=== PATIENT | female | born 1980 | race Caucasian/White ===

== ENCOUNTER 2021-08-21 18:25 | Emergency (ER) | payer MEDICAID ==
[2021-08-21] MEDS ORDERED: Ketorolac 30 MG/ML SDV IM ONE (19:22)
[2021-08-21] MEDS ORDERED: Ketorolac 30 MG/ML SDV ONE (19:27)
[2021-08-21] MEDS ORDERED: Ondansetron 4 MG Tab.DIS PO ONE (19:36)
[2021-08-21] MEDS ORDERED: Ondansetron 4 MG Tab.DIS ONE (19:38)
[2021-08-22] MEDS ORDERED: Prochlorperazine 10 MG in Sodium Chloride 0.9% 50 ML IV ONE (07:06)
[2021-08-22] MEDS ORDERED: Prochlorperazine 10 MG/2 ML SDV IVPUSH ONE (07:15)
[2021-08-22] MEDS ORDERED: LORazepam 2 MG/ML SDV ONE (07:22)
[2021-08-22] MEDS ORDERED: Pantoprazole 40 MG Vial ONE (07:31)
== END 2021-08-21 20:15 | disposition home or self-care (01) ==
LOC: LB.ED 18:25
DX: R18.8 Other ascites (principal); R06.02 Shortness of breath
CPT/HCPCS: 36415; 49083; 80053; 85025; 87070; 87205; 96372; 99284; 99284-25; A9270-GY; J1885

== ENCOUNTER 2021-08-22 06:32 | Emergency (ER) | payer MEDICAID ==
[2021-08-22] MEDS ORDERED: Ondansetron 4 MG/2 ML SDV IVPUSH ONE (07:07)
[2021-08-22] MEDS ORDERED: Prochlorperazine 10 MG in Sodium Chloride 0.9% 50 ML IV ONE (07:10)
[2021-08-22] MEDS ORDERED: Pantoprazole 40 MG Vial IVPUSH ONE (07:21)
[2021-08-22] MEDS ORDERED: Sodium Chloride 0.9% 1,000 ML IV SCH (07:30)
[2021-08-22] MEDS ORDERED: Prochlorperazine 10 MG/2 ML SDV IVPUSH ONE (07:30)
--- NOTE | 2021-08-22 07:54 | EDM.PDOC ---
ED HPI GENERAL MEDICAL PROBLEM - General Chief Complaint: Gastrointestinal Problem Stated Complaint: Vomiting blood Time Seen by Provider: 08/22/21 06:37 Source of Information: Reports: Patient History Limitations: Reports: No Limitations - History of Present Illness INITIAL COMMENTS - FREE TEXT/NARRATIVE: 40-year-old female presents to the ED complaining of hemoptysis. Patient was seen in the ER last night for abdominal pain and shortness of breath secondary to ascites buildup from her chronic liver failure. Patient had a therapeutic paracentesis in the ED removing 2000 cc. Patient was discharged in stable condition at that time. Patient has a medical history of heart failure and esophageal varices hepatitis C. Last esophageal varices repair was done during approximately July 25 of this year. This morning unknown exact time patient awoke throwing up blood she did this in her words "all morning" unknown number of episodes of emesis. Blood is described as bright red and large volume. Patient is screaming that she is going to with the feeling of impending doom. Patient denies shortness of breath chest pain loss of consciousness or trauma since last night - Related Data Allergies Allergy/AdvReac Type Severity Reaction Status Date / Time No Known Allergies Allergy Verified 08/22/21 07:01 Home Meds: Home Meds Furosemide [Lasix] 20 mg PO DAILY 08/21/21 [History] Spironolactone [Aldactone] 25 mg PO DAILY 08/21/21 [History] Past Medical History Gastrointestinal History: Reports: Cirrhosis, GI Bleed (Esophageal varices), Hemorrhoids, Other (See Below) (Liver failure) - History Comment History Comment: EtOH abuse recreational drug abuse ED ROS GENERAL - Review of Systems Review Of Systems: Comprehensive ROS is negative, except as noted in HPI. Constitutional: Reports: Weakness, Fatigue, Weight Loss HEENT: Reports: No Symptoms Respiratory: Reports: No Symptoms Cardiovascular: Reports: No Symptoms Endocrine: Reports: Fatigue GI/Abdominal: Reports: Abdominal Pain, Bloody Stool, Distension, Hematochezia, Vomiting : Reports: No Symptoms Musculoskeletal: Reports: No Symptoms Skin: Reports: Pallor, Dryness Neurological: Reports: No Symptoms Psychiatric: Reports: Anxiety Hematologic/Lymphatic: Reports: Anemia, Easy Bleeding, Easy Bruising ED EXAM, GI/ABD - Physical Exam Exam: See Below Text/Narrative:: Airwaybloody emesis patient able to clear on her own can be laid down feels like she is drowning. Breathingslightly tachypneic 16-24 respirations per minute Circulationthready regular tachycardic Patient in obvious distress. No obvious trauma. Speaking in full sentences. Alert and oriented x3, GCS 456. Exam Limited By: No Limitations General Appearance: Alert, WD/WN, No Apparent Distress, Anxious, Severe Distress, Thin Eyes: Bilateral: EOMI, Pale Conjunctiva Ears: Normal External Exam, Hearing Grossly Normal Throat/Mouth: Normal Lips, Normal Voice, No Airway Compromise, Other (Blood in hypopharynx and mouth secondary to hemoptysis) Head: Atraumatic, Normocephalic Respiratory/Chest: Lungs Clear, Normal Breath Sounds, No Accessory Muscle Use Cardiovascular: Tachycardia, Other (Hypotensive). No: Extra Beats Extremities: No Pedal Edema Neurological: Alert, Oriented, Normal Cognition Psychiatric: Anxious Skin Exam: Dry, Cool, Pallor ED ABDOMINAL/GI PROCEDURES - Additional/Other Procedure(s) Procedure(s) (Free Text): Transfused 2 units blood O- cross and screen patient is A+ Course - Vital Signs Last Recorded V/S: Last Vital Signs Temp 97.6 F 08/22/21 07:00 Pulse 100 08/22/21 07:00 Resp 14 08/22/21 07:00 BP 92/54 L 08/22/21 07:00 Pulse Ox 100 08/22/21 07:00 - Orders/Labs/Meds Orders: Active Orders 24 hr Category Date Time Status CBC WITH AUTO DIFF [HEME] Stat Lab 08/22/21 07:23 Ordered CORONAVIRUS COVID-19 KODY [MOLEC] Routine Lab 08/22/21 07:15 Received RED BLOOD CELLS LP [BBK] Routine Lab 08/22/21 07:05 Received TYPE AND SCREEN [BBK] Routine Lab 08/22/21 07:05 Received Sodium Chloride 0.9% [Normal Saline] 1,000 ml Med 08/22/21 07:30 Active IV ASDIRECTED Transfuse PRBC [Transfuse Red Blood Cells] [COMM] Stat Oth 08/22/21 07:23 Ordered Medication Orders Sodium Chloride (Normal Saline) 1,000 mls @ 50 mls/hr IV ASDIRECTED LILI Meds: Medications Generic Name Dose Route Start Last Admin Trade Name Freq PRN Reason Stop Dose Admin Sodium Chloride 1,000 mls @ 50 mls/hr 08/22/21 07:30 Normal Saline IV ASDIRECTED LILI Discontinued Medications Generic Name Dose Route Start Last Admin Trade Name John PRN Reason Stop Dose Admin Ondansetron HCl 4 mg 08/22/21 07:07 Ondansetron 4 Mg/2 Ml Sdv IVPUSH 08/22/21 07:08 ONETIME ONE Pantoprazole Sodium 80 mg 08/22/21 07:21 Pantoprazole 40 Mg Vial IVPUSH 08/22/21 07:22 .BOLUS ONE Prochlorperazine Edisylate 10 mg 08/22/21 07:30 Prochlorperazine 10 Mg/2 Ml Sdv IVPUSH 08/22/21 07:31 ONETIME ONE Departure - Departure Time of Disposition: 08:45 Disposition: DC/Tfer to Acute Hospital 02 Condition: Poor Clinical Impression: Esophageal varices Qualifiers: Esophageal varices type: secondary Esophageal varices bleeding: with bleeding Qualified Code(s): I85.11 - Secondary esophageal varices with bleeding - Discharge Information *PRESCRIPTION DRUG MONITORING PROGRAM REVIEWED*: No *COPY OF PRESCRIPTION DRUG MONITORING REPORT IN PATIENT JARETT: No Referrals: PCP,None [Primary Care Provider] - Sepsis Event Note (ED) - Evaluation Sepsis Screening Result: No Definite Risk - Focused Exam Vital Signs: Vital Signs Temp Pulse Resp BP Pulse Ox 08/22/21 07:00 97.6 F 100 14 92/54 L 100 - My Orders Last 24 Hours: My Active Orders 08/22/21 07:05 RED BLOOD CELLS LP [BBK] Routine TYPE AND SCREEN [BBK] Routine 08/22/21 07:15 CORONAVIRUS COVID-19 KODY [MOLEC] Routine 08/22/21 07:23 CBC WITH AUTO DIFF [HEME] Stat Transfuse PRBC [Transfuse Red Blood Cells] [COMM] Stat 08/22/21 07:30 Sodium Chloride 0.9% [Normal Saline] 1,000 ml IV ASDIRECTED - Assessment/Plan Last 24 Hours: My Active Orders 08/22/21 07:05 RED BLOOD CELLS LP [BBK] Routine TYPE AND SCREEN [BBK] Routine 08/22/21 07:15 CORONAVIRUS COVID-19 KODY [MOLEC] Routine 08/22/21 07:23 CBC WITH AUTO DIFF [HEME] Stat Transfuse PRBC [Transfuse Red Blood Cells] [COMM] Stat 08/22/21 07:30 Sodium Chloride 0.9% [Normal Saline] 1,000 ml IV ASDIRECTED Assessment:: 1. Hemoptysis secondary to esophageal varices 2. Anemia 3. Chronic liver failure Plan: Airway breathing circulation, history, exam, IV, EKG, I/O, normal saline bolus, blood transfusion O-, Protonix 80 mg, consultation with Brianna Salcido, consultation and acceptance by ER physician at [facility] by Dr. Poon. [employer] [facility] contacted 1 hour ETA, fixed wing, delayed due to weather, octreotide 50 mcg. Transferred to flight crew Per up-to-date TXA it is of no benefit in esophageal varices bleeding.
[2021-08-22] MEDS ORDERED: Octreotide 100 MCG/ML SDV IV ONE (08:40)
== END 2021-08-22 09:50 ==
LOC: LB.ED 06:32
DX: I85.11 Secondary esophageal varices with bleeding (principal); Z20.822 Contact with and (suspected) exposure to COVID-19
CPT/HCPCS: 36415; 36430; 85025; 86850; 86900; 86901; 86920; 86922; 87635; 93005; 96374; 96375; 99285; C9113; J0780; J2354; J2405; J7030; P9016; A0425; A0429; U0002

== ENCOUNTER 2021-08-28 10:06 | Emergency (ER) | payer MEDICAID ==
[2021-08-28] MEDS ORDERED: Sodium Chloride 0.9% 10 ML Syringe FLUSH PRN (10:37)
[2021-08-28] MEDS ORDERED: HYDROmorphone 2 MG/ML SDV ONE ×2 (11:30→15:25)
--- NOTE | 2021-08-28 11:43 | EDM.PDOC ---
ED HPI GENERAL MEDICAL PROBLEM - General Chief Complaint: Abdominal Pain Stated Complaint: PAIN Time Seen by Provider: 08/28/21 10:06 Source of Information: Reports: Patient, Family, Old Records, RN Notes Reviewed History Limitations: Reports: No Limitations - History of Present Illness INITIAL COMMENTS - FREE TEXT/NARRATIVE: This patient presents to the emergency department for evaluation of abdominal pain. She has a very long and complex history that includes liver failure, alcoholic cirrhosis, a GI bleed, esophageal varices, anemia, metabolic encephalopathy, thrombocytopenia, recent pneumonia, alcoholic dependence, and methamphetamine abuse. Additionally she is quite malnourished. She has most recently been hospitalized in [place] and was discharged in the care of her family who wanted to take care of her at home; however, they are not able to meet her care needs. During her last hospitalization she was getting paracentesis and will need to have that done soon. She was tapped last on 08/26 and 4400 mils were removed. According to family members she has an appointment at [facility] [address] in [place] tomorrow to have paracentesis done there. Today she is complaining of significant abdominal pain with more distention. She states it is difficult for her to move or breathe and cannot tolerate the pain any longer. She has had no vomiting or diarrhea. She has got some nausea today. According to family members when she is out of the hospital she is nonadherent with diet and fluid restriction and it is unknown whether she has been using alcohol or other drugs. She states she has not had any drug or alcohol use for several months; however, her physical presentation and condition does not support that allegation. - Related Data Allergies Allergy/AdvReac Type Severity Reaction Status Date / Time No Known Allergies Allergy Verified 08/22/21 07:01 Home Meds: Home Meds Furosemide [Lasix] 20 mg PO DAILY 08/21/21 [History] Spironolactone [Aldactone] 40 mg PO DAILY 08/21/21 [History] Folic Acid 1 mg PO DAILY 08/28/21 [History] Lactulose [Constulose] 10 gm PO DAILY 08/28/21 [History] Multivitamin [Multi-Vitamin Daily] 1 tab PO DAILY 08/28/21 [History] Pantoprazole [ProTONIX] 40 mg PO BID 08/28/21 [History] Propranolol [Inderal] 10 mg PO TID 08/28/21 [History] Thiamine HCl [B-1] 1 tab PO DAILY 08/28/21 [History] hydrOXYzine HCL [Hydroxyzine HCl] 25 mg PO Q8HR PRN 08/28/21 [History] risperiDONE [Risperidone] 0.25 mg PO BID 08/28/21 [History] Past Medical History Other HEENT History: esophageal varices Gastrointestinal History: Reports: Cirrhosis, GI Bleed (Esophageal varices), Hemorrhoids, Other (See Below) (Liver failure) Other Gastrointestinal History: end stage liver disease Psychiatric History: Reports: Addiction, Anxiety Hematologic History: Reports: Blood Transfusion(s) - Infectious Disease History Infectious Disease History: Reports: Hepatitis C - History Comment History Comment: EtOH abuse recreational drug abuse ED ROS GENERAL - Review of Systems Review Of Systems: Comprehensive ROS is negative, except as noted in HPI. ED EXAM, GENERAL - Physical Exam Exam: See Below Free Text/Narrative:: Thin, emaciated female; color yellow-aguilar. Complaining that she cannot tolerate the pain. Exam Limited By: Other (Patient difficult historian, possibly related to encephalopathy.) General Appearance: Alert, Anxious, Moderate Distress, Thin, Cachetic Eye Exam: Bilateral Eye: EOMI, Normal Inspection, PERRL Ears: Normal External Exam, Hearing Grossly Normal Nose: Normal Inspection, Normal Mucosa Throat/Mouth: Normal Inspection, No Airway Compromise Head: Atraumatic, Normocephalic (Oh my God) Neck: Normal Inspection, Supple, Non-Tender, Full Range of Motion Respiratory/Chest: No Accessory Muscle Use, Chest Non-Tender, Decreased Breath Sounds (Bilateral bases, may be related to inability to take deep breaths because of ascites.) Cardiovascular: Regular Rate, Rhythm GI/Abdominal: Distended, Abnormal Bowel Sounds (Decreased in all quadrants), Other (Ascitic, extremely distended and taut) Extremities: Normal Inspection, Other (Multiple bruises) Neurological: Alert, Oriented Psychiatric: Anxious, Depressed Mood, Flat Affect Skin Exam: Warm, Dry, Intact, No Rash, Ecchymosis, Jaundice (Mild), Pallor, Tattoo(s) Course - Orders/Labs/Meds Orders: Active Orders 24 hr Category Date Time Status Regular Diet [DIET] Diet 08/28/21 Dinner Ordered CULTURE URINE [RM] Stat Lab 08/28/21 10:39 Received HYDROmorphone [Dilaudid] Med 08/28/21 21:01 Active 1 mg IM Q4H PRN LORazepam [Ativan] Med 08/28/21 21:01 Active 1 mg IM Q4H PRN Sodium Chloride 0.9% [Saline Flush] Med 08/28/21 10:37 Active 10 ml FLUSH ASDIRECTED PRN Saline Lock Insert [OM.PC] Routine Oth 08/28/21 10:37 Ordered Medication Orders Hydromorphone HCl (Hydromorphone 2 Mg/Ml Sdv) 1 mg IM Q4H PRN PRN Reason: Pain Last Admin: 08/29/21 05:42 Dose: 1 mg Documented by: Admin: 08/28/21 22:11 Dose: 1 mg Documented by: KAILYN Lorazepam (Lorazepam 2 Mg/Ml Sdv) 1 mg IM Q4H PRN PRN Reason: Anxiety Last Admin: 08/29/21 05:42 Dose: 1 mg Documented by: Admin: 08/28/21 22:11 Dose: 1 mg Documented by: KAILYN Sodium Chloride (Sodium Chloride 0.9% 10 Ml Syringe) 10 ml FLUSH ASDIRECTED PRN PRN Reason: Keep Vein Open Labs: Laboratory Tests 08/28/21 08/28/21 08/28/21 Range/Units 10:37 10:39 10:39 WBC (4.0-11.0) K/uL RBC (3.80-5.80) M/uL Hgb (11.5-16.5) g/dL Hct (37.0-47.0) % MCV (76-96) fL MCH (27.0-32.0) pg MCHC (31.0-35.0) g/dL RDW (11.0-16.0) % Plt Count (150-500) K/uL MPV (6.0-10.0) fL Neut % (Auto) (45.0-70.0) % Lymph % (Auto) (20.0-40.0) % Faulkner % (Auto) (3.0-10.0) % Eos % (Auto) (1.0-5.0) % Baso % (Auto) (0.0-0.5) % Neut # (Auto) (2.00-7.50) K/uL Lymph # (Auto) (1.50-4.00) K/uL Faulkner # (Auto) (0.20-0.80) K/uL Eos # (Auto) (0.04-0.40) K/uL Baso # (Auto) (0.02-0.10) K/uL PT (9.0-11.5) sec INR (1.0-3.5) Sodium (136-145) mmol/L Potassium (3.5-5.1) mmol/L Chloride (98-107) mmol/L Carbon Dioxide (21.0-32.0) mmol/L Anion Gap (5.0-15.0) mmol/L BUN (8-26) mg/dL Creatinine (0.55-1.02) mg/dL Est Cr Clr Drug Dosing Estimated GFR (MDRD) (>60) MLS/MIN BUN/Creatinine Ratio (6-25) Glucose (74-100) mg/dL Calcium (8.5-10.1) mg/dL AST (15-37) U/L ALT 34 (12-78) U/L Alkaline Phosphatase (46-116) U/L Ammonia (11-32) umol/L Amylase (25-115) U/L Lipase (73-393) U/L Urine Color Yellow Urine Appearance Slightly cloudy (CLEAR) Urine pH 5.5 (5.0-8.0) Ur Specific Madison 1.025 (1.003-1.030) Urine Protein Negative (NEGATIVE) mg/dL Urine Glucose (UA) Negative (NEGATIVE) mg/dL Urine Ketones Negative (NEGATIVE) mg/dL Urine Occult Blood Trace-intact H (NEGATIVE) Urine Nitrite Negative (NEGATIVE) Urine Bilirubin Negative (NEGATIVE) Urine Urobilinogen 0.2 (0.2-1.0) E.U./dL Ur Leukocyte Esterase Large H (NEGATIVE) Urine RBC 0-5 H /HPF Urine WBC 10-20 H /HPF Ur Squamous Epith Cells Moderate /HPF Calcium Oxalate Crystal Moderate /HPF Urine Bacteria Few /HPF Urine Opiates Screen (NEGATIVE) Ur Oxycodone Screen (NEGATIVE) Urine Methadone Screen (NEGATIVE) Ur Barbiturates Screen (NEGATIVE) Ur Tricyclics Screen (NEGATIVE) Ur Phencyclidine Scrn (NEGATIVE) Ur Amphetamine Screen (NEGATIVE) U Methamphetamines Scrn (NEGATIVE) Urine MDMA Screen (NEGATIVE) U Benzodiazepines Scrn (NEGATIVE) U Cocaine Metab Screen (NEGATIVE) U Marijuana (THC) Screen (NEGATIVE) Ethyl Alcohol 5.0 H (<3.0) mg/dL SARS-CoV-2 RNA (KODY) Positive H (NEGATIVE) 08/28/21 08/28/21 08/28/21 Range/Units 11:13 11:13 11:13 WBC 10.4 (4.0-11.0) K/uL RBC 2.57 L (3.80-5.80) M/uL Hgb 7.8 L D (11.5-16.5) g/dL Hct 23.7 L D (37.0-47.0) % MCV 92 (76-96) fL MCH 30.4 (27.0-32.0) pg MCHC 32.9 (31.0-35.0) g/dL RDW 17.4 H (11.0-16.0) % Plt Count 199 D (150-500) K/uL MPV 8.6 (6.0-10.0) fL Neut % (Auto) 76.4 H (45.0-70.0) % Lymph % (Auto) 11.1 L (20.0-40.0) % Faulkner % (Auto) 9.3 (3.0-10.0) % Eos % (Auto) 2.8 (1.0-5.0) % Baso % (Auto) 0.4 (0.0-0.5) % Neut # (Auto) 7.92 H (2.00-7.50) K/uL Lymph # (Auto) 1.15 L (1.50-4.00) K/uL Faulkner # (Auto) 0.96 H (0.20-0.80) K/uL Eos # (Auto) 0.29 (0.04-0.40) K/uL Baso # (Auto) 0.04 (0.02-0.10) K/uL PT 11.8 H (9.0-11.5) sec INR 1.2 (1.0-3.5) Sodium 136 (136-145) mmol/L Potassium 3.9 D (3.5-5.1) mmol/L Chloride 105 (98-107) mmol/L Carbon Dioxide 16.4 L D (21.0-32.0) mmol/L Anion Gap 18.5 H (5.0-15.0) mmol/L BUN 14 D (8-26) mg/dL Creatinine 0.74 (0.55-1.02) mg/dL Est Cr Clr Drug Dosing TNP Estimated GFR (MDRD) > 60 (>60) MLS/MIN BUN/Creatinine Ratio 18.9 (6-25) Glucose 134 H (74-100) mg/dL Calcium 7.7 L (8.5-10.1) mg/dL AST (15-37) U/L ALT (12-78) U/L Alkaline Phosphatase (46-116) U/L Ammonia (11-32) umol/L Amylase 52 (25-115) U/L Lipase 359 (73-393) U/L Urine Color Urine Appearance (CLEAR) Urine pH (5.0-8.0) Ur Specific Madison (1.003-1.030) Urine Protein (NEGATIVE) mg/dL Urine Glucose (UA) (NEGATIVE) mg/dL Urine Ketones (NEGATIVE) mg/dL Urine Occult Blood (NEGATIVE) Urine Nitrite (NEGATIVE) Urine Bilirubin (NEGATIVE) Urine Urobilinogen (0.2-1.0) E.U./dL Ur Leukocyte Esterase (NEGATIVE) Urine RBC /HPF Urine WBC /HPF Ur Squamous Epith Cells /HPF Calcium Oxalate Crystal /HPF Urine Bacteria /HPF Urine Opiates Screen (NEGATIVE) Ur Oxycodone Screen (NEGATIVE) Urine Methadone Screen (NEGATIVE) Ur Barbiturates Screen (NEGATIVE) Ur Tricyclics Screen (NEGATIVE) Ur Phencyclidine Scrn (NEGATIVE) Ur Amphetamine Screen (NEGATIVE) U Methamphetamines Scrn (NEGATIVE) Urine MDMA Screen (NEGATIVE) U Benzodiazepines Scrn (NEGATIVE) U Cocaine Metab Screen (NEGATIVE) U Marijuana (THC) Screen (NEGATIVE) Ethyl Alcohol (<3.0) mg/dL SARS-CoV-2 RNA (KODY) (NEGATIVE) 08/28/21 08/28/21 08/28/21 Range/Units 11:13 11:13 12:05 WBC (4.0-11.0) K/uL RBC (3.80-5.80) M/uL Hgb (11.5-16.5) g/dL Hct (37.0-47.0) % MCV (76-96) fL MCH (27.0-32.0) pg MCHC (31.0-35.0) g/dL RDW (11.0-16.0) % Plt Count (150-500) K/uL MPV (6.0-10.0) fL Neut % (Auto) (45.0-70.0) % Lymph % (Auto) (20.0-40.0) % Faulkner % (Auto) (3.0-10.0) % Eos % (Auto) (1.0-5.0) % Baso % (Auto) (0.0-0.5) % Neut # (Auto) (2.00-7.50) K/uL Lymph # (Auto) (1.50-4.00) K/uL Faulkner # (Auto) (0.20-0.80) K/uL Eos # (Auto) (0.04-0.40) K/uL Baso # (Auto) (0.02-0.10) K/uL PT (9.0-11.5) sec INR (1.0-3.5) Sodium (136-145) mmol/L Potassium (3.5-5.1) mmol/L Chloride (98-107) mmol/L Carbon Dioxide (21.0-32.0) mmol/L Anion Gap (5.0-15.0) mmol/L BUN (8-26) mg/dL Creatinine (0.55-1.02) mg/dL Est Cr Clr Drug Dosing Estimated GFR (MDRD) (>60) MLS/MIN BUN/Creatinine Ratio (6-25) Glucose (74-100) mg/dL Calcium (8.5-10.1) mg/dL AST 45 H (15-37) U/L ALT (12-78) U/L Alkaline Phosphatase 178 H (46-116) U/L Ammonia 91 H (11-32) umol/L Amylase (25-115) U/L Lipase (73-393) U/L Urine Color Urine Appearance (CLEAR) Urine pH (5.0-8.0) Ur Specific Madison (1.003-1.030) Urine Protein (NEGATIVE) mg/dL Urine Glucose (UA) (NEGATIVE) mg/dL Urine Ketones (NEGATIVE) mg/dL Urine Occult Blood (NEGATIVE) Urine Nitrite (NEGATIVE) Urine Bilirubin (NEGATIVE) Urine Urobilinogen (0.2-1.0) E.U./dL Ur Leukocyte Esterase (NEGATIVE) Urine RBC /HPF Urine WBC /HPF Ur Squamous Epith Cells /HPF Calcium Oxalate Crystal /HPF Urine Bacteria /HPF Urine Opiates Screen Negative (NEGATIVE) Ur Oxycodone Screen Positive H (NEGATIVE) Urine Methadone Screen Negative (NEGATIVE) Ur Barbiturates Screen Negative (NEGATIVE) Ur Tricyclics Screen Negative (NEGATIVE) Ur Phencyclidine Scrn Negative (NEGATIVE) Ur Amphetamine Screen Negative (NEGATIVE) U Methamphetamines Scrn Negative (NEGATIVE) Urine MDMA Screen Negative (NEGATIVE) U Benzodiazepines Scrn Positive H (NEGATIVE) U Cocaine Metab Screen Negative (NEGATIVE) U Marijuana (THC) Screen Negative (NEGATIVE) Ethyl Alcohol (<3.0) mg/dL SARS-CoV-2 RNA (KODY) (NEGATIVE) Meds: Medications Generic Name Dose Route Start Last Admin Trade Name Freq PRN Reason Stop Dose Admin Hydromorphone HCl 1 mg 08/28/21 21:01 08/29/21 05:42 Hydromorphone 2 Mg/Ml Sdv IM 1 mg Q4H PRN Administration Pain Lorazepam 1 mg 08/28/21 21:01 08/29/21 05:42 Lorazepam 2 Mg/Ml Sdv IM 1 mg Q4H PRN Administration Anxiety Sodium Chloride 10 ml 08/28/21 10:37 Sodium Chloride 0.9% 10 Ml Syringe FLUSH ASDIRECTED PRN Keep Vein Open Discontinued Medications Generic Name Dose Route Start Last Admin Trade Name John PRN Reason Stop Dose Admin Furosemide 40 mg 08/28/21 15:44 08/28/21 16:00 Furosemide 40 Mg Tab PO 08/28/21 15:45 40 mg ONETIME ONE Administration Hydromorphone HCl Confirm 08/28/21 11:30 08/28/21 11:57 Hydromorphone 2 Mg/Ml Sdv Administered 08/28/21 11:31 Not Given Dose 2 mg .ROUTE .STK-MED ONE Hydromorphone HCl 0.5 mg 08/28/21 11:57 08/28/21 11:45 Hydromorphone 2 Mg/Ml Sdv IM 08/28/21 11:58 0.5 mg ONETIME ONE Administration Hydromorphone HCl 1 mg 08/28/21 15:25 08/28/21 15:30 Hydromorphone 2 Mg/Ml Sdv IM 08/28/21 15:26 1 mg ONETIME ONE Administration Hydromorphone HCl Confirm 08/28/21 15:25 08/28/21 16:19 Hydromorphone 2 Mg/Ml Sdv Administered 08/28/21 15:26 Not Given Dose 2 mg .ROUTE .STK-MED ONE Lorazepam 2 mg 08/28/21 15:25 08/28/21 15:30 Lorazepam 2 Mg/Ml Sdv IM 08/28/21 15:26 2 mg ONETIME ONE Administration Lorazepam Confirm 08/28/21 15:25 08/28/21 16:18 Lorazepam 2 Mg/Ml Sdv Administered 08/28/21 15:26 Not Given Dose 2 mg .ROUTE .STK-MED ONE Nicotine 14 mg 08/28/21 15:45 08/28/21 16:00 Nicotine 14 Mg/24 Hr Patch TRDERM 08/28/21 15:46 14 mg ONETIME ONE Administration Spironolactone 100 mg 08/28/21 15:44 08/28/21 16:00 Spironolactone 100 Mg Tab PO 08/28/21 15:45 100 mg ONETIME ONE Administration - Re-Assessments/Exams Free Text/Narrative Re-Assessment/Exam: 08/28/21 13:06 Lab results received and reviewed. Findings today are actually improved over her recent hospitalization. She does have a positive alcohol level as well as positive opioids and benzodiazepines; however, she has been getting medications for pain. She does need paracentesis and family stated that this was scheduled for her to be done tomorrow at [facility] in [place]. I did contact interventional radiology there and they have no order for this procedure. Contact made with [facility] through [employer] for more information. 08/28/21 15:37 Patient is Covid positive, family members were notified. Arrangements have been made for her to have a paracentesis for comfort tomorrow, 08/29 at 1:30 PM at [facility] in [place]. 08/29/21 08:00 This patient slept well with stable vital signs. She has been afebrile. She continues to leak serosanginous fluid from the sites of her previous pericentesis procedures. She has had medications for pain and anxiety during the night. She was discharged today in the care of a family member for transport to [facility] of pericentesis. Departure - Departure Time of Disposition: 10:00 Disposition: Home, W Home Health Agency 06 Condition: Fair Clinical Impression: Ascites due to alcoholic cirrhosis - Discharge Information Referrals: PCP,None [Primary Care Provider] - Forms: ED Department Discharge - My Orders Last 24 Hours: My Active Orders 08/28/21 10:37 Sodium Chloride 0.9% [Saline Flush] 10 ml FLUSH ASDIRECTED PRN Saline Lock Insert [OM.PC] Routine 08/28/21 10:39 CULTURE URINE [RM] Stat 08/28/21 Dinner Regular Diet [DIET] 08/28/21 21:01 HYDROmorphone [Dilaudid] 1 mg IM Q4H PRN LORazepam [Ativan] 1 mg IM Q4H PRN - Assessment/Plan Last 24 Hours: My Active Orders 08/28/21 10:37 Sodium Chloride 0.9% [Saline Flush] 10 ml FLUSH ASDIRECTED PRN Saline Lock Insert [OM.PC] Routine 08/28/21 10:39 CULTURE URINE [RM] Stat 08/28/21 Dinner Regular Diet [DIET] 08/28/21 21:01 HYDROmorphone [Dilaudid] 1 mg IM Q4H PRN LORazepam [Ativan] 1 mg IM Q4H PRN
[2021-08-28] MEDS ORDERED: HYDROmorphone 2 MG/ML SDV IM ONE ×2 (11:57→15:25)
[2021-08-28] MEDS ORDERED: LORazepam 2 MG/ML SDV IM ONE (15:25)
[2021-08-28] MEDS ORDERED: LORazepam 2 MG/ML SDV ONE (15:25)
[2021-08-28] MEDS ORDERED: Spironolactone 100 MG Tab PO ONE (15:44)
[2021-08-28] MEDS ORDERED: Furosemide 40 MG Tab PO ONE (15:44)
[2021-08-28] MEDS ORDERED: Nicotine 14 MG/24 Hr Patch TRDERM ONE (15:45)
[2021-08-28] MEDS: HYDROmorphone 2 MG/ML SDV IM PRN (22:11)
[2021-08-28] MEDS: LORazepam 2 MG/ML SDV IM PRN (22:11)
[2021-08-29] MEDS: LORazepam 2 MG/ML SDV IM PRN ×2 (05:42→09:37)
[2021-08-29] MEDS: HYDROmorphone 2 MG/ML SDV IM PRN ×2 (05:42→09:36)
[2021-08-29] MEDS ORDERED: Furosemide 40 MG Tab PO ONE (08:24)
[2021-08-29] MEDS ORDERED: Spironolactone 100 MG Tab PO ONE (08:25)
[2021-08-29] MEDS ORDERED: Spironolactone 100 MG Tab ONE (08:29)
[2021-08-29] MEDS ORDERED: Furosemide 40 MG Tab ONE (08:29)
== END 2021-08-29 09:29 | disposition home health service (06) ==
LOC: LB.ED 10:06
DX: K70.31 Alcoholic cirrhosis of liver with ascites (principal); Z79.899 Other long term (current) drug therapy; Z20.822 Contact with and (suspected) exposure to COVID-19
CPT/HCPCS: 36415; 80048; 80307; 81001; 81003; 82140; 82150; 83690; 84075; 84450; 84460; 85025; 85610; 87086; 87635; 96372; 99284; A9270; J1170; J2060; U0002

== ENCOUNTER 2021-09-01 00:55 | Emergency (ER) | payer MEDICAID ==
--- NOTE | 2021-09-01 02:55 | EDM.PDOC ---
ED HPI GENERAL MEDICAL PROBLEM - General Chief Complaint: Gastrointestinal Problem Stated Complaint: blood in stools Time Seen by Provider: 09/01/21 00:58 Source of Information: Reports: Patient, EMS Notes Reviewed, RN Notes Reviewed History Limitations: Reports: No Limitations - History of Present Illness INITIAL COMMENTS - FREE TEXT/NARRATIVE: This patient presents to the emergency department for evaluation of bloody stools. She arrives via EMS stating she had 3 bloody stools at home and called for help because the last time this happened she then began vomiting blood. She has had no nausea or vomiting tonight. She was discharged from the facility here on 08/29 and went to [facility] for paracentesis. She had 2000 mils of fluid removed from her abdomen on that date and went home. She states she has been doing well since then. She denies alcohol or drug use. She denies fever, continues to complain of right upper quadrant abdominal pain. She denies other concerns or complaints. - Related Data Allergies Allergy/AdvReac Type Severity Reaction Status Date / Time No Known Allergies Allergy Verified 09/01/21 02:30 Home Meds: Home Meds Furosemide [Lasix] 20 mg PO DAILY 08/21/21 [History] Spironolactone [Aldactone] 40 mg PO DAILY 08/21/21 [History] Folic Acid 1 mg PO DAILY 08/28/21 [History] Lactulose [Constulose] 10 gm PO DAILY 08/28/21 [History] Multivitamin [Multi-Vitamin Daily] 1 tab PO DAILY 08/28/21 [History] Pantoprazole [ProTONIX] 40 mg PO BID 08/28/21 [History] Propranolol [Inderal] 10 mg PO TID 08/28/21 [History] Thiamine HCl [B-1] 1 tab PO DAILY 08/28/21 [History] hydrOXYzine HCL [Hydroxyzine HCl] 25 mg PO Q8HR PRN 08/28/21 [History] risperiDONE [Risperidone] 0.25 mg PO BID 08/28/21 [History] Past Medical History Other HEENT History: esophageal varices Gastrointestinal History: Reports: Cirrhosis, GI Bleed, Hemorrhoids, Other (See Below) Other Gastrointestinal History: end stage liver disease Psychiatric History: Reports: Addiction, Anxiety Hematologic History: Reports: Blood Transfusion(s) Immunologic History: Reports: None Oncologic (Cancer) History: Reports: None - Infectious Disease History Infectious Disease History: Reports: Hepatitis C - Past Surgical History Head Surgeries/Procedures: Reports: None Oncologic Surgical History: Reports: None - History Comment History Comment: EtOH abuse recreational drug abuse ED ROS GENERAL - Review of Systems Review Of Systems: Comprehensive ROS is negative, except as noted in HPI. ED EXAM, GI/ABD - Physical Exam Exam: See Below Exam Limited By: No Limitations General Appearance: Alert, No Apparent Distress Eyes: Bilateral: Normal Appearance, EOMI Ears: Normal External Exam Nose: Normal Inspection Throat/Mouth: Normal Inspection Head: Atraumatic, Normocephalic Neck: Normal Inspection, Full Range of Motion Respiratory/Chest: No Respiratory Distress, Lungs Clear, Normal Breath Sounds, No Accessory Muscle Use Cardiovascular: Regular Rate, Rhythm GI/Abdominal Exam: Normal Bowel Sounds, Non-Tender, Other (Protuberant abdomen with tenderness in right upper quadrant) Course - Vital Signs Last Recorded V/S: Last Vital Signs Temp 36.8 C 09/01/21 00:57 Pulse 78 09/01/21 00:57 Resp 16 09/01/21 00:57 BP 113/82 09/01/21 00:57 Pulse Ox 100 09/01/21 00:57 - Orders/Labs/Meds Labs: Laboratory Tests 09/01/21 09/01/21 09/01/21 Range/Units 01:35 01:35 01:36 WBC 6.4 D (4.0-11.0) K/uL RBC 2.64 L (3.80-5.80) M/uL Hgb 8.0 L (11.5-16.5) g/dL Hct 24.3 L (37.0-47.0) % MCV 92 (76-96) fL MCH 30.3 (27.0-32.0) pg MCHC 32.9 (31.0-35.0) g/dL RDW 17.3 H (11.0-16.0) % Plt Count 165 (150-500) K/uL MPV 9.3 (6.0-10.0) fL Neut % (Auto) 73.3 H (45.0-70.0) % Lymph % (Auto) 14.2 L (20.0-40.0) % Broome % (Auto) 10.0 (3.0-10.0) % Eos % (Auto) 2.2 (1.0-5.0) % Baso % (Auto) 0.3 (0.0-0.5) % Neut # (Auto) 4.68 (2.00-7.50) K/uL Lymph # (Auto) 0.91 L (1.50-4.00) K/uL Broome # (Auto) 0.64 (0.20-0.80) K/uL Eos # (Auto) 0.14 (0.04-0.40) K/uL Baso # (Auto) 0.02 (0.02-0.10) K/uL Sodium 137 (136-145) mmol/L Potassium 4.4 (3.5-5.1) mmol/L Chloride 108 H (98-107) mmol/L Carbon Dioxide 19.0 L (21.0-32.0) mmol/L Anion Gap 14.4 (5.0-15.0) mmol/L BUN 16 (8-26) mg/dL Creatinine 0.70 (0.55-1.02) mg/dL Est Cr Clr Drug Dosing TNP Estimated GFR (MDRD) > 60 (>60) MLS/MIN BUN/Creatinine Ratio 22.9 (6-25) Glucose 154 H (74-100) mg/dL Lactic Acid 1.5 (0.4-2.0) mmol/L Calcium 7.8 L (8.5-10.1) mg/dL Amylase (25-115) U/L Lipase (73-393) U/L Ethyl Alcohol (<3.0) mg/dL Blood Type Gel Antibody Screen 09/01/21 09/01/21 09/01/21 Range/Units 01:36 01:36 01:37 WBC (4.0-11.0) K/uL RBC (3.80-5.80) M/uL Hgb (11.5-16.5) g/dL Hct (37.0-47.0) % MCV (76-96) fL MCH (27.0-32.0) pg MCHC (31.0-35.0) g/dL RDW (11.0-16.0) % Plt Count (150-500) K/uL MPV (6.0-10.0) fL Neut % (Auto) (45.0-70.0) % Lymph % (Auto) (20.0-40.0) % Bro[place] % (Auto) (3.0-10.0) % Eos % (Auto) (1.0-5.0) % Baso % (Auto) (0.0-0.5) % Neut # (Auto) (2.00-7.50) K/uL Lymph # (Auto) (1.50-4.00) K/uL Broome # (Auto) (0.20-0.80) K/uL Eos # (Auto) (0.04-0.40) K/uL Baso # (Auto) (0.02-0.10) K/uL Sodium (136-145) mmol/L Potassium (3.5-5.1) mmol/L Chloride (98-107) mmol/L Carbon Dioxide (21.0-32.0) mmol/L Anion Gap (5.0-15.0) mmol/L BUN (8-26) mg/dL Creatinine (0.55-1.02) mg/dL Est Cr Clr Drug Dosing Estimated GFR (MDRD) (>60) MLS/MIN BUN/Creatinine Ratio (6-25) Glucose (74-100) mg/dL Lactic Acid (0.4-2.0) mmol/L Calcium (8.5-10.1) mg/dL Amylase 53 (25-115) U/L Lipase 361 (73-393) U/L Ethyl Alcohol < 3.0 (<3.0) mg/dL Blood Type A POSITIVE Gel Antibody Screen Negative - Radiology Interpretation Free Text/Narrative:: This patient presents to the emergency department for evaluation of bloody stools. She did not have any bloody stools here nor has she had any vomiting or other abdominal signs. Lab results today are improved over her last admission. Physical exam is unchanged with a ascitic belly that is actually smaller. Patient will be discharged to home and instructed to follow-up as previously planned. The patient was stable at the time of discharge. Departure - Departure Time of Disposition: 03:30 Disposition: Home, Self-Care 01 Preliminary Cause of *Q: Sepsis & Multi System Organ Failure Condition: Fair Clinical Impression: Rectal bleeding, Ascites due to alcoholic cirrhosis, Alcoholic cirrhosis of liver with ascites - Discharge Information *PRESCRIPTION DRUG MONITORING PROGRAM REVIEWED*: Not Applicable *COPY OF PRESCRIPTION DRUG MONITORING REPORT IN PATIENT JARETT: Not Applicable Instructions: Rectal Bleeding, [id number] Referrals: PCP,None [Primary Care Provider] - Forms: ED Department Discharge Additional Instructions: Continue to follow up as scheduled. Take your medication as prescribed Sepsis Event Note (ED) - Focused Exam Vital Signs: Vital Signs Temp Pulse Resp BP Pulse Ox 09/01/21 00:57 36.8 C 78 16 113/82 100
== END 2021-09-01 03:15 | disposition home or self-care (01) ==
LOC: LB.ED 00:55
DX: K62.5 Hemorrhage of anus and rectum (principal); K70.31 Alcoholic cirrhosis of liver with ascites; Z79.899 Other long term (current) drug therapy
CPT/HCPCS: 36415; 80048; 80307; 82150; 83605; 83690; 85025; 86850; 86900; 86901; 99283; A0425; A0429